=== PATIENT | male | born 2000 | race Caucasian/White ===

== ENCOUNTER 2023-06-22 18:08 | Emergency (ER) | payer OTHER, SELFPAY ==
[2023-06-22 18:29] VITALS: BP 123/59; PULSE 71; RESP 16; TEMP 37.2; O2SAT 97; BMI 18.3
--- NOTE | 2023-06-22 18:59 | ED.ABDPAIN ---
HPI - Abdominal Pain General Chief Complaint: Abdominal Pain Stated Complaint: elevated LFTs, RUQ pain Time Seen by Provider: 06/22/23 18:56 Source: patient Mode of arrival: Ambulatory History of Present Illness HPI narrative: Patient healthy 22-year-old male who presents with 67 days of nausea vomiting and abdominal discomfort. [place] he was found to have bilirubin 5.62, elevated alk-phos at 486, ALT 872 AST 14 and GGT of 225. He denies any vomiting. He does report having significant night sweats waking up in pools of sweat. Has had decreased appetite over last couple days. Mild sore throat. No fever that he knows of. He reports being sober from alcohol for 2 months. He says that he had binge drinking problems since he was at the age of 19 drinking till he blacked out regularly. He is really tenderness epigastric and left upper quadrant area he is not for it. Related Data Allergies Allergy/AdvReac Type Severity Reaction Status Date / Time No Known Drug Allergies Allergy Verified 06/22/23 20:03 Review of Systems Review of Systems ROS Unobtainable: All systems reviewed & are unremarkable except as noted in HPI and below Patient History Social History Smoking Status: Current every day smoker Smoking Status: Current every day smoker tobacco type: cigars and vaping alcohol intake frequency: a few times a week Alcohol type: hard liquor Substance Use Type: does not use Exam Initial Vital Signs Initial Vital Signs: Vital Signs Temperature 98.9 F 06/22/23 18:29 Pulse Rate 71 06/22/23 18:29 Respiratory Rate 16 06/22/23 18:29 Blood Pressure 123/59 L 06/22/23 18:29 Pulse Oximetry 97 06/22/23 18:29 Oxygen Delivery Method Room Air 06/22/23 18:29 GENERAL: Thin well-appearing year old male HEENT: Head atraumatic,EOMI, pupils reactive, face symmetric, moist mucous membranes CARDIOVASCULAR: Regular rate and rhythm without murmurs, rubs or gallops. RESPIRATORY: Breath sounds equal bilaterally, no wheezes rales or rhonchi. ABDOMEN: Soft, negative Byrd sign no distention, mild epigastric pain tender in left upper quadrant : No CVA tenderness EXTREMITIES: Normal range of motion, no clubbing or edema. Neurovascularly intact NEUROLOGICAL: Alert and oriented x4. SKIN: Warm, dry, no laceration, no petechiae, no rashes or lesions. Course Orders Ordered: ED Orders 06/22/23 18:45 Complete Blood Count AUTO DIFF Stat Comprehensive Metabolic Panel Stat ETOH [Ethanol (ETOH)] Stat Ictotest Urine Stat Lipase Stat Monotest Stat Urine Culture Stat Urine Microscopic Stat 06/22/23 19:06 US abdomen complete Stat Discontinued Medications Ketorolac Tromethamine (Ketorolac 30 Mg/Ml Vial) 15 mg IV NOW ONE Stop: 06/22/23 19:51 Last Admin: 06/22/23 20:19 Dose: 15 mg Documented By: GC Ondansetron HCl (Ondansetron 4 Mg Odt) 4 mg PO NOW PRN PRN Reason: Nausea And Vomiting Ondansetron HCl (Ondansetron 4 Mg/2 Ml Inj) 4 mg IV NOW PRN PRN Reason: Nausea And Vomiting Vital Signs Vital signs: Vital Signs - 8 hr 06/22/23 19:17 06/22/23 19:17 06/22/23 19:27 Temperature Pulse Rate 60 68 Respiratory Rate Blood Pressure 121/63 Pulse Oximetry 98 97 06/22/23 20:45 Temperature 98.4 F Pulse Rate Respiratory Rate 18 Blood Pressure 133/74 Pulse Oximetry MDM - Abdominal Pain Lab Data 06/22/23 18:45 06/22/23 18:45 Labs: Lab Results 06/22/23 06/22/23 06/22/23 Range/Units 18:45 18:45 18:45 WBC 12.6 H (4.5-11.0) X10^3/uL RBC 4.06 L (4.5-5.9) X10^6/uL Hgb 13.4 L (13.5-17.5) g/dL Hct 38.6 L (41-53) % MCV 95.1 (80-100) fL MCH 33.0 (26-34) PG MCHC 34.7 (30-36) % RDW 13.7 (11.6-14.8) % Plt Count 259 (150-400) X10^3/uL Neut % (Auto) Not Reportable Lymph % (Auto) Not Reportable [place]erry % (Auto) Not Reportable Eos % (Auto) Not Reportable Baso % (Auto) Not Reportable Lymph # (Auto) Not Reportable [place] # (Auto) Not Reportable Baso # (Auto) Not Reportable Total Counted 100 Seg Neutrophils % 21.0 L (38-70) % Lymphocytes % (Manual) 66.0 H (25-45) % Monocytes % (Manual) 11.0 (2-11) % Eosinophils % (Manual) 1.0 L (2-4) % Basophils % (Manual) 1.0 (0-1) % Neutrophils # (Manual) 2646 L (2835-5532) /uL Reactive Lymphocytes 2+ H RBC Morphology Normal morphology Sodium 138 (137-145) mmol/L Potassium 3.7 (3.4-5.1) mmol/L Chloride 100 (98-107) mmol/L Carbon Dioxide 29 (22-32) mmol/L BUN 7 L (9-20) mg/dL Creatinine 0.76 (0.66-1.25) mg/dL Estimated GFR > 60 (>60) mL/min BUN/Creatinine Ratio 9.2 (6-22) Glucose 100 (70-100) mg/dL Calcium 9.1 (8.4-10.2) mg/dL Total Bilirubin 5.5 H (0.2-1.3) mg/dL AST 582 H (17-59) IU/L ALT 741 H (<50) IU/L Alkaline Phosphatase 410 H (38-126) U/L Total Protein 8.3 H (6.3-8.2) g/dL Albumin 4.4 (3.5-5.0) g/dL Globulin 3.9 (1.7-4.1) g/dL Albumin/Globulin Ratio 1.1 (1.0-2.8) Lipase 115 (23-300) U/L Ur Bilirubin Confirm Positive H (Negative) Urine RBC 0-1/hpf (0-5/HPF) Urine WBC 5-10/hpf H (0-5/HPF) Ur Squamous Epith Cells 0-1 /hpf (0-5/HPF) Urine Bacteria Few (2-10) H (None) Urine Sperm Present Ethyl Alcohol ( - 10) mg/dL Monoscreen (Negative) 06/22/23 06/22/23 Range/Units 18:45 18:45 WBC (4.5-11.0) X10^3/uL RBC (4.5-5.9) X10^6/uL Hgb (13.5-17.5) g/dL Hct (41-53) % MCV (80-100) fL MCH (26-34) PG MCHC (30-36) % RDW (11.6-14.8) % Plt Count (150-400) X10^3/uL Neut % (Auto) Lymph % (Auto) [place] % (Auto) Eos % (Auto) Baso % (Auto) Lymph # (Auto) [place] # (Auto) Baso # (Auto) Total Counted Seg Neutrophils % (38-70) % Lymphocytes % (Manual) (25-45) % Monocytes % (Manual) (2-11) % Eosinophils % (Manual) (2-4) % Basophils % (Manual) (0-1) % Neutrophils # (Manual) (4627-5289) /uL Reactive Lymphocytes RBC Morphology Sodium (137-145) mmol/L Potassium (3.4-5.1) mmol/L Chloride (98-107) mmol/L Carbon Dioxide (22-32) mmol/L BUN (9-20) mg/dL Creatinine (0.66-1.25) mg/dL Estimated GFR (>60) mL/min BUN/Creatinine Ratio (6-22) Glucose (70-100) mg/dL Calcium (8.4-10.2) mg/dL Total Bilirubin (0.2-1.3) mg/dL AST (17-59) IU/L ALT (<50) IU/L Alkaline Phosphatase (38-126) U/L Total Protein (6.3-8.2) g/dL Albumin (3.5-5.0) g/dL Globulin (1.7-4.1) g/dL Albumin/Globulin Ratio (1.0-2.8) Lipase (23-300) U/L Ur Bilirubin Confirm (Negative) Urine RBC (0-5/HPF) Urine WBC (0-5/HPF) Ur Squamous Epith Cells (0-5/HPF) Urine Bacteria (None) Urine Sperm Ethyl Alcohol < 10 ( - 10) mg/dL Monoscreen Positive H (Negative) Point of care testing: Urine Dip Bedside Urine Glucose Negative Bedside Urine Bilirubin + 1 Bedside Urine Ketone - Negative Urine Specific [place] 1.025 Bedside Urine Occult Blood - Negative Bedside Urine pH 6.0 Bedside Urine Protein + 30 Bedside Urine Urobilinogen - Negative Bedside Urine Nitrite - Negative Bedside Urine Leukocytes + 70 Esterase Imaging Data US - abdomen: Radiologist's Impression: PROCEDURE:? US ABDOMEN COMPLETE ? INDICATIONS:? luq >ruq pain with high bili ? TECHNIQUE:? Real-time scanning was performed of the abdominal and retroperitoneal organs, with image documentation.? ? COMPARISON:? None. ? FINDINGS:? ? Liver:? Liver is normal in size and homogeneous in echotexture.? ? Gallbladder:? No intraluminal stones, gallbladder wall thickening or pericholecystic fluid.? Sonographic Byrd sign is negative. ? Biliary ducts:? Intrahepatic bile ducts are non-dilated.? Extrahepatic bile duct caliber measures 3.5 mm.? Normal is 6-7 mm or less in diameter, or 10 mm or less post-cholecystectomy.? ? Pancreas:? Visualized portions of the pancreas are sonographically normal.? ? Spleen:? Spleen is mildly enlarged and measures 14.3 cm.? It is homogeneous in echotexture.? ? Kidneys:? Kidneys are normal in size and echotexture.? Right kidney measures 11.7 cm long; left kidney measures 11.3 cm long.? No hydronephrosis or nephrolithiasis.? No solid masses.? ? Aorta:? Visualized aorta is normal in caliber at less than 3 cm.? ? Iliacs:? Proximal common iliac arteries are normal in caliber at less than 2.5 cm.? ? IVC:? Intrahepatic inferior vena cava is patent.? ? IMPRESSION:? 1. No cholelithiasis or sonographic evidence of acute cholecystitis.? 2. No dilatation of the biliary system. 3. Mildly enlarged spleen measuring up to 14.3 cm. ? ? Approved by: Francie Santana M.D. on 06/22/2023 at 20:21? [facility] Narrative Medical decision making narrative: Patient 22-year-old male who admits to alcohol use reports that he has been sober for 2 months presents today with epigastric pain and left upper quadrant pain. He has had night sweats mild sore throat. Found to have significantly elevated bilirubin liver enzymes, bilirubin 5.5, AST 582, ALT 741, alk-phos 410 with a lipase of 115. Ultrasound does not show any gallbladder disease and he is not tenderness right upper quadrant. He is found to have mono which explains left upper quadrant pain sore throat and night sweats. Ultrasound confirms mild splenomegaly. Liver enzymes elevated secondary to mono versus alcohol use. At this time vitals are stable no need for any further imaging Discharge Plan Departure Patient Disposition: Home Clinical Impression: Infectious mononucleosis, Splenomegaly, Elevated liver enzymes, Alcohol abuse Instructions: Mononucleosis Activity Restrictions/Additional Instructions: *You have been diagnosed with mononucleosis, splenomegaly *What to do: At this time this will take a couple weeks to heal. Please avoid any sort of high-risk activities your spleen is mildly in large do not get hit in. Limit physical exercise. Supportive care only. Tylenol Motrin as needed. You will need clearance from her PCM to return to full duty. Please have your liver enzymes rechecked with her PCM. Also I strongly encourage you to with stain from drinking. *Continue to take medications as directed *Follow up with your primary care provider in 2-3 days or call [phone] *Return to ER if you should have increasing left upper quadrant pain, nausea vomiting or any new, worsening or concerning symptoms Stand Alone Forms: Patient Portal/API, Work Release Note
--- NOTE | 2023-06-22 19:06 | DI.US.S_ITS ---
PROCEDURE: US ABDOMEN COMPLETE INDICATIONS: luq >ruq pain with high bili TECHNIQUE: Real-time scanning was performed of the abdominal and retroperitoneal organs, with image documentation. COMPARISON: None. FINDINGS: Liver: Liver is normal in size and homogeneous in echotexture. Gallbladder: No intraluminal stones, gallbladder wall thickening or pericholecystic fluid. Sonographic Byrd sign is negative. Biliary ducts: Intrahepatic bile ducts are non-dilated. Extrahepatic bile duct caliber measures 3.5 mm. Normal is 6-7 mm or less in diameter, or 10 mm or less post-cholecystectomy. Pancreas: Visualized portions of the pancreas are sonographically normal. Spleen: Spleen is mildly enlarged and measures 14.3 cm. It is homogeneous in echotexture. Kidneys: Kidneys are normal in size and echotexture. Right kidney measures 11.7 cm long; left kidney measures 11.3 cm long. No hydronephrosis or nephrolithiasis. No solid masses. Aorta: Visualized aorta is normal in caliber at less than 3 cm. Iliacs: Proximal common iliac arteries are normal in caliber at less than 2.5 cm. IVC: Intrahepatic inferior vena cava is patent. IMPRESSION: 1. No cholelithiasis or sonographic evidence of acute cholecystitis. 2. No dilatation of the biliary system. 3. Mildly enlarged spleen measuring up to 14.3 cm. Approved by: Francie Santana M.D. on 06/22/2023 at 20:21
[2023-06-22 19:17] VITALS: BP 121/63; PULSE 60; O2SAT 98
[2023-06-22 19:24] LABS: Alanine Aminotransferase 741 IU/L (<50); Albumin 4.4 g/dL (3.5-5.0); Albumin Globulin Ratio 1.1 (1.0-2.8); Alkaline Phosphatase 410 U/L (38-126); Aspartate Aminotransferase 582 IU/L (17-59); BUN Creatinine Ratio 9.2 (6-22); Bilirubin Total 5.5 mg/dL (0.2-1.3); Blood Urea Nitrogen 7 mg/dL (9-20); Calcium 9.1 mg/dL (8.4-10.2); Carbon Dioxide 29 mmol/L (22-32); Chloride 100 mmol/L (98-107); Estimated Glomerular Filt Rate > 60 mL/min (>60); Globulin 3.9 g/dL (1.7-4.1); Glucose 100 mg/dL (70-100); HEMOLYSIS 19 (0-50); Lipase 115 U/L (23-300); Potassium 3.7 mmol/L (3.4-5.1); Sodium 138 mmol/L (137-145); Total Protein 8.3 g/dL (6.3-8.2)
[2023-06-22 19:27] VITALS: PULSE 68; O2SAT 97
[2023-06-22 19:34] LABS: Bacteria Urine Few (2-10); Ictotest Urine Positive (Negative); RBC Urine 0-1/HPF (0-5/HPF); Squamous Epithelial Cell Urine 0-1 /HPF (0-5/HPF); WBC Urine 5-10/HPF (0-5/HPF)
[2023-06-22 19:35] LABS: Sperm Urine PRESENT
[2023-06-22 19:46] LABS: Add Manual Diff / Slide Review YES; Hematocrit 38.6 % (41-53); Hemoglobin 13.4 g/dL (13.5-17.5); Mean Corpuscular HGB Conc 34.7 % (30-36); Mean Corpuscular Volume 95.1 fL (80-100); Platelet Count 259 X10^3/uL (150-400); Red Blood Cell Count 4.06 X10^6/uL (4.5-5.9); Red Cell Distribution Width 13.7 % (11.6-14.8); White Blood Cell Count 12.6 X10^3/uL (4.5-11.0)
[2023-06-22 19:58] LABS: Neutrophils Absolute Manual 2646 /uL (3000-5900); Total Cells Counted 100
[2023-06-22 19:59] LABS: RBC Morphology Normal Morphology; Reactive Lymphocytes 2+
[2023-06-22 20:01] LABS: Monotest Positive (Negative)
[2023-06-22 20:09] LABS: Ethanol (ETOH) < 10 mg/dL
[2023-06-22] MEDS: KETOROLAC 30 MG/ML VIAL 15 MG IV (20:19)
[2023-06-22 20:45] VITALS: BP 133/74; RESP 18; TEMP 36.9
== END 2023-06-22 20:50 | disposition home or self-care (01) ==
PROVIDERS: Emergency Provider Emergency Medicine
DX: B27.90 Infectious mononucleosis, unspecified without complication (principal); R16.1 Splenomegaly, not elsewhere classified; R74.8 Abnormal levels of other serum enzymes; F10.10 Alcohol abuse, uncomplicated; R11.2 Nausea with vomiting, unspecified
CPT/HCPCS: 36415; 76700; 80053; 80320; 81003; 81015; 83690; 85007; 85025; 86318; 87086; 96374; 99284; J1885